=== PATIENT | female | born 1940 | race Caucasian/White ===

== ENCOUNTER 2017-10-19 20:19 | Emergency (ER) | payer MEDICARE | END 2017-10-19 23:22 | disposition home or self-care (01) | LOC: ER 20:19 | DX: M25.561 Pain in right knee (principal); K21.9 Gastro-esophageal reflux disease without esophagitis; E78.00 Pure hypercholesterolemia, unspecified; R22.41 Localized swelling, mass and lump, right lower limb; I10 Essential (primary) hypertension; Z88.5 Allergy status to narcotic agent | CPT/HCPCS: 93971; 99284 ==